=== PATIENT | female | born 1950 | race Caucasian/White ===

== ENCOUNTER 2019-04-22 11:25 | Emergency (ER) | payer MEDICARE, OTHER ==
[2019-04-22] MEDS ORDERED: ONDANSETRON HCL INJ/PF 4 MG/2 ML SDV IV ONE (11:38)
--- NOTE | 2019-04-22 11:43 | ER Document Report ---
ED Medical Screen (RME) - General Chief Complaint: Nausea/Vomiting Stated Complaint: NAUSEA,VOMITING,NEAR SYNCOPE Time Seen by Provider: 04/22/19 11:37 Mode of Arrival: Medic Information source: Patient Notes: 68-year-old female presented to ED for complaint of nausea vomiting and diarrhea since . She states she was in [place] at that time and was seen by . treated with some Zofran she was diagnosed with a viral illness at that time.. She states she is continued to be sick on Sunday she flew from [place] to [place]. She states she is continued to dizzy lightheaded and has had several large emesis since she came to [place]. She was treated with 500 cc of normal saline and 4 mg of IV Zofran in the EMS. We will give her another liter of fluids and 4 more milligrams of IV Zofran. She does have a history of COPD. She states she was diagnosed with a viral illness in [place]. She does have a history of colon cancer with a cancerous polyp removed but they did not actually do a resection. She states her mother does have a history of diverticulitis. Patient does have significant right lower quadrant tenderness. I have greeted and performed a rapid initial assessment of this patient. A comprehensive ED assessment and evaluation of the patient, analysis of test results and completion of medical decision making process will be conducted by an additional ED providers.
[2019-04-22] MEDS ORDERED: NORMAL SALINE 1000 ML 1,000 ML IV ONE (11:46)
[2019-04-22 11:48] LABS: ABSOLUTE LYMPHOCYTES (AUTO) 2.2 10^3/uL (0.5-4.7); ABSOLUTE MONOCYTES (AUTO) 0.5 10^3/uL (0.1-1.4); BASOPHILS % (AUTO) 0.3 % (0-2); EOSINOPHILS % (AUTO) 0.6 % (0-6); HEMATOCRIT 38.5 % (36.0-47.0); LYMPHOCYTES % (AUTO) 31.8 % (13-45); MEAN CORPUSCULAR HEMOGLOBIN 29.9 pg (27.0-33.4); MEAN CORPUSCULAR HGB CONC 33.7 g/dL (32.0-36.0); MEAN CORPUSCULAR VOLUME 89 fl (80-97); MONOCYTES % (AUTO) 7.8 % (3-13); PLATELET COUNT 239 10^3/uL (150-450); RED BLOOD COUNT 4.34 10^6/uL (3.72-5.28); RED CELL DISTRIBUTION WIDTH 14.8 % (11.5-14.0); SEGMENTED NEUTROPHILS % (AUTO) 59.5 % (42-78); TOTAL CELLS COUNTED % (AUTO) 100 %; WHITE BLOOD COUNT 6.8 10^3/uL (4.0-10.5)
[2019-04-22 12:13] LABS: ALBUMIN 3.8 g/dL (3.5-5.0); ALKALINE PHOSPHATASE 83 U/L (38-126); ANION GAP 10 (5-19); ASPARTATE AMINO TRANSFERASE 24 U/L (14-36); BILIRUBIN,DIRECT 0.1 mg/dL (0.0-0.4); BILIRUBIN,TOTAL 0.5 mg/dL (0.2-1.3); BLOOD UREA NITROGEN 12 mg/dL (7-20); CALCIUM 9.1 mg/dL (8.4-10.2); CARBON DIOXIDE 25 mmol/L (22-30); CHLORIDE 104 mmol/L (98-107); GLUCOSE 97 mg/dL (75-110); POTASSIUM 4.6 mmol/L (3.6-5.0); TOTAL PROTEIN 6.3 g/dL (6.3-8.2)
[2019-04-22 12:36] LABS: APPEARANCE,URINE CLEAR; BILIRUBIN,URINE NEGATIVE (NEGATIVE); COLOR,URINE YELLOW; GLUCOSE, URINE NEGATIVE (NEGATIVE); KETONES,URINE TRACE mg/dL (NEGATIVE); PROTEIN,URINE NEGATIVE (NEGATIVE); URINE SPECIFIC GRAVITY 1.005; UROBILINOGEN,URINE NEGATIVE mg/dL (<2.0)
--- NOTE | 2019-04-22 15:13 | RADIOLOGY REPORT (SQ) ---
EXAM DESCRIPTION: CT ABD/PELVIS WITH IV ORAL COMPLETED DATE/TIME: 04/22/2019 2:38 pm REASON FOR STUDY: Left lower quadrant pain COMPARISON: None. TECHNIQUE: CT scan of the abdomen and pelvis performed using helical scanning technique with dynamic intravenous contrast injection. Patient drank oral contrast. Images reviewed with lung, soft tissue , and bone windows. Reconstructed coronal and sagittal MPR images reviewed. Delayed images for evalua tion of the urinary system also acquired. All images stored on PACS. All CT scanners at this facility use dose modulation, iterative reconstruction, and/or weight based d osing when appropriate to reduce radiation dose to as low as reasonably achievable (ALARA). [facility]: Dose Right [facility]: CareDose [facility]: Dose Right [facility]: Teradose 4D [facility]: Podaddies CONTRAST TYPE AND DOSE: contrast/concentration: Isovue 350.00 mg/ml; Total Contrast Delivered: 70.0 ml; Total Saline Delivered: 57.0 ml RENAL FUNCTION: Creatinine 0.7 RADIATION DOSE: CT Rad equipment meets quality standard of care and radiation dose reduction techniq ues were employed. CTDIvol: 6.2 - 8.4 mGy. DLP: 707 mGy-cm.. LIMITATIONS: None. FINDINGS: LOWER CHEST: Obstructive lung disease at the bases. LIVER: Normal size. No masses. No dilated ducts. SPLEEN: Normal size. No focal lesions. PANCREAS: No masses. No significant calcifications. No adjacent inflammation or peripancreatic fluid collections. Pancreatic duct not dilated. GALLBLADDER: Surgically absent ADRENAL GLANDS: No significant masses or asymmetry. RIGHT KIDNEY AND URETER: No solid masses. No significant calcifications. No hydronephrosis or hyd roureter. LEFT KIDNEY AND URETER: No solid masses. No significant calcifications. No hydronephrosis or hydr oureter. AORTA AND VESSELS: No aneurysm. No dissection. Renal arteries, SMA, celiac without stenosis. RETROPERITONEUM: No retroperitoneal adenopathy, hemorrhage or masses. BOWEL AND PERITONEAL CAVITY: Patient drank oral contrast. No CT evidence of free intraperitoneal air or fluid or CT signs of bowel obstruction. No colonic diverticulosis/ diverticulitis. APPENDIX: Normal, best shown on axial images 61-65 PELVIS: No mass. No free fluid. Normal bladder. Post hysterectomy ABDOMINAL WALL: No masses. No hernias. BONES: No significant or acute findings. OTHER: No other significant finding. IMPRESSION: NO SIGNIFICANT OR ACUTE FINDING IN THE ABDOMEN OR PELVIS ON CT SCAN WITH IV CONTRAST. TECHNICAL DOCUMENTATION: JOB ID: [id number] Quality ID # [id number]: Final reports with documentation of one or more dose reduction techniques (e.g., Au tomated exposure control, adjustment of the mA and/or kV according to patient size, use of iterative reconstruction technique) 2010 [employer]- All Rights Reserved Reading location - IP/workstation name: [email or web address]
--- NOTE | 2019-04-22 15:27 | ER Document Report ---
ED General - General Chief Complaint: Nausea/Vomiting Stated Complaint: NAUSEA,VOMITING,NEAR SYNCOPE Time Seen by Provider: 04/22/19 11:37 Primary Care Provider: DONYA PÉREZ MD [Primary Care Provider] - Follow up as needed Mode of Arrival: Medic Information source: Patient TRAVEL OUTSIDE OF THE U[place]S. IN LAST 30 DAYS: No - HPI Notes: Patient presents with weakness and malaise. She states she is recently had a diarrheal illness. She states approximately a week ago she went to the emergency department and had received fluids because she was having severe diarrhea with low blood pressure. She states since that time she has just continued to have some dizziness and malaise. She denies any fever or rashes. No vomiting. No dysuria urgency or frequency. No significant abdominal pain. Her symptoms have been mild. They have gotten worse with standing and better with lying down. There is no known radiation of the symptoms. They have been intermittent. - Related Data Allergies/Adverse Reactions: morphine Allergy (Verified 04/22/19 12:44) adhesive tape Adverse Reaction (Verified 04/22/19 12:44) Past Medical History - General Information source: Patient - Social History Smoking Status: Current Every Day Smoker Frequency of alcohol use: None Drug Abuse: None Family History: Reviewed & Not Pertinent Patient has suicidal ideation: No Patient has homicidal ideation: No Pulmonary Medical History: Reports: Hx COPD Past Surgical History: Reports: Hx Bowel Surgery, Hx Cholecystectomy, Hx Hysterectomy, Hx Neurologic Surgery - Back, Hx Orthopedic Surgery - Rt shoulder Review of Systems - Review of Systems Constitutional: Malaise, Weakness. denies: Chills, Fever Cardiovascular: denies: Chest pain, Palpitations Respiratory: denies: Cough, Short of breath Gastrointestinal: Diarrhea. denies: Vomiting -: Yes All other systems reviewed and negative - Who was a Physical Exam - Vital signs Vitals: Temp Pulse Resp BP Pulse Ox 97.6 F 70 16 137/62 H 100 04/22/19 11:53 04/22/19 11:53 04/22/19 11:53 04/22/19 11:53 04/22/19 11:53 Interpretation: Normal - General General appearance: Appears well, Alert - HEENT Head: Normocephalic, Atraumatic Eyes: Normal Pupils: PERRL - Respiratory Respiratory status: No respiratory distress Chest status: Nontender Breath sounds: Normal Chest palpation: Normal - Cardiovascular Rhythm: Regular Heart sounds: Normal auscultation Murmur: No - Abdominal Inspection: Normal Distension: No distension Bowel sounds: Normal Tenderness: Nontender Organomegaly: No organomegaly - Back Back: Normal, Nontender - Extremities General upper extremity: Normal inspection, Nontender, Normal color, Normal ROM, Normal temperature General lower extremity: Normal inspection, Nontender, Normal color, Normal ROM, Normal temperature, Normal weight bearing. No: Juancho's sign - Neurological Neuro grossly intact: Yes Cognition: Normal Orientation: AAOx4 [place] Coma Scale Eye Opening: Spontaneous [place] Coma Scale Verbal: Oriented Shelia Coma Scale Motor: Obeys Commands [place] Coma Scale Total: 15 Speech: Normal Motor strength normal: LUE, RUE, LLE, RLE Sensory: Normal - Psychological Associated symptoms: Normal affect, Normal mood - Skin Skin Temperature: Warm Skin Moisture: Dry Skin Color: Normal Course - Re-evaluation Re-evalutation: 04/22/19 15:24 Patient presents with some dizziness and malaise. Patient's laboratory is unremarkable. Her exam is unremarkable. CT scan and vital signs are also unremarkable. I can find no obvious cause for patient's malaise and weakness except possibly the residual effects of what ever illness was causing her diarrhea last week. I think at this time patient is stable for discharge and to follow-up as an outpatient. Upon arrival here patient's dizziness was resolved and she has had no further dizziness. 04/22/19 15:25 - Vital Signs Vital signs: Temp Pulse Resp BP Pulse Ox 97.6 F 70 16 137/62 H 100 04/22/19 11:53 04/22/19 11:53 04/22/19 11:53 04/22/19 11:53 04/22/19 11:53 - Laboratory Result Diagrams: 04/22/19 11:10 04/22/19 11:10 Laboratory results interpreted by me: 04/22/19 04/22/19 11:10 12:20 RDW 14.8 H Urine Ketones TRACE H Urine Blood MODERATE H - Diagnostic Test Radiology reviewed: Image reviewed, Reports reviewed Discharge - Discharge Clinical Impression: Dizziness, Weakness Condition: Stable Disposition: HOME, SELF-CARE Instructions: Dizziness ([facility]) Additional Instructions: Please call your family doctor as soon as possible to arrange follow-up Referrals: DONYA PÉREZ MD [Primary Care Provider] - Follow up in 3-5 days
[2019-04-22 15:45] VITALS: BP 126/71
== END 2019-04-22 15:42 | disposition home or self-care (01) ==
LOC: ER 11:25
DX: R42 Dizziness and giddiness (principal); R53.1 Weakness; R11.2 Nausea with vomiting, unspecified; R55 Syncope and collapse; R19.7 Diarrhea, unspecified; Z88.6 Allergy status to analgesic agent; R53.81 Other malaise; Z90.710 Acquired absence of both cervix and uterus; Z90.49 Acquired absence of other specified parts of digestive tract
CPT/HCPCS: 99285; 96361; 96374; 36415; 83690; 85025; 80053; 81001; 74177; J2405; J7030

== ENCOUNTER → 2019-05-02 | Day surgery (SDC) | payer MEDICARE, OTHER ==
[~2019-05-02] MED LIST: BUPIVACAINE HCL 0.5 % INJ/PF 30 ML SDV ONE; METHYLPREDNISOLONE ACETATE INJ 80 MG/1 ML VIAL ONE
--- NOTE | 2019-05-02 15:01 | RADIOLOGY REPORT (SQ) ---
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 FLUOROSCOPY TIME: 0.2 minutes 1 images saved to PACS. LIMITATIONS: None. PROCEDURE: SITE OF INJECTION: Right hip LOCALIZING CONTRAST TYPE AND DOSE: 1 mL Omnipaque MEDICATION TYPE AND DOSE: 80 mg Depo-Medrol, 5 mL 0.5% bupivacaine. Using local anesthesia and sterile technique with fluoroscopic guidance, the needle was advanced into the joint. Iodinated contrast was injected to verify intraarticular placement. This was followed by therapeutic injection of the indicated medications. The needle was removed. There were no immediat e complications. Preprocedure pain level: 3/5. Postprocedure pain level: 0/5. IMPRESSION: THERAPEUTIC INJECTION OF THE RIGHT HIP JOINT ABOVE. COMMENT: Patient medication list reviewed: Yes- Quality ID# 130:Eligible professional attests to doc umenting in the medical record they obtained, updated, or reviewed the patient's current medications. . Quality ID 145: Final reports for procedures using fluoroscopy that document radiation exposure dereck mildred, or exposure time and number of fluorographic images (if radiation exposure indices are not avail able) TECHNICAL DOCUMENTATION: JOB ID: [id number] [employer]- All Rights Reserved Reading location - IP/workstation name: [email or web address]
--- NOTE | 2019-05-02 15:01 | RADIOLOGY REPORT (SQ) ---
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 FLUOROSCOPY TIME: 0.2 minutes 1 images saved to PACS. LIMITATIONS: None. PROCEDURE: SITE OF INJECTION: Right hip LOCALIZING CONTRAST TYPE AND DOSE: 1 mL Omnipaque MEDICATION TYPE AND DOSE: 80 mg Depo-Medrol, 5 mL 0.5% bupivacaine. Using local anesthesia and sterile technique with fluoroscopic guidance, the needle was advanced into the joint. Iodinated contrast was injected to verify intraarticular placement. This was followed by therapeutic injection of the indicated medications. The needle was removed. There were no immediat e complications. Preprocedure pain level: 3/5. Postprocedure pain level: 0/5. IMPRESSION: THERAPEUTIC INJECTION OF THE RIGHT HIP JOINT ABOVE. COMMENT: Patient medication list reviewed: Yes- Quality ID# 130:Eligible professional attests to doc umenting in the medical record they obtained, updated, or reviewed the patient's current medications. . Quality ID 145: Final reports for procedures using fluoroscopy that document radiation exposure dereck mildred, or exposure time and number of fluorographic images (if radiation exposure indices are not avail able) TECHNICAL DOCUMENTATION: JOB ID: [id number] [employer]- All Rights Reserved Reading location - IP/workstation name: [email or web address]
== END ==
LOC: RAD 12:52
PROVIDERS: ATTEND Orthopaedic Surgery
DX: M16.11 Unilateral primary osteoarthritis, right hip (principal)
CPT/HCPCS: 20610; 77002; J3490; J1040

== ENCOUNTER 2019-10-01 10:32 | Emergency (ER) | payer MEDICARE, OTHER ==
--- NOTE | 2019-10-01 10:44 | ER Document Report ---
ED Medical Screen (RME) - General Chief Complaint: Arm Pain Stated Complaint: LEFT ARM AND LEG PAIN, HEADACHE Time Seen by Provider: 10/01/19 10:40 Primary Care Provider: CHET NOLAN PA-C [Primary Care Provider] - Follow up as needed Information source: Patient Notes: Patient presents complaining of headache pain for the past 2 days with left upper and left lower extremity pain. Patient denies any weakness to the extremities. Patient is concerned that she may be having a stroke. Patient reports that history significant for COPD. I have greeted and performed a rapid initial assessment of this patient. A comprehensive ED assessment and evaluation of the patient, analysis of test results and completion of the medical decision making process will be conducted by additional ED providers. TRAVEL OUTSIDE OF THE [place].S. IN LAST 30 DAYS: No - Related Data Allergies/Adverse Reactions: morphine Allergy (Verified 04/22/19 12:44) adhesive tape Adverse Reaction (Verified 04/22/19 12:44) Past Medical History Pulmonary Medical History: Reports: Hx COPD Past Surgical History: Reports: Hx Bowel Surgery, Hx Cholecystectomy, Hx Hysterectomy, Hx Neurologic Surgery - Back, Hx Orthopedic Surgery - Rt shoulder Physical Exam - Vital signs Vitals: Temp Pulse Resp BP Pulse Ox 97.8 F 69 16 132/65 H 96 10/01/19 10:39 10/01/19 10:39 10/01/19 10:39 10/01/19 10:39 10/01/19 10:39 - Neurological Shelia Coma Scale Eye Opening: Spontaneous [place] Coma Scale Verbal: Oriented [place] Coma Scale Motor: Obeys Commands [place] Coma Scale Total: 15 Speech: Normal. No: Dysarthria Motor strength normal: HEBERTE, RUMikaela Course - Vital Signs Vital signs: Temp Pulse Resp BP Pulse Ox 97.8 F 69 16 132/65 H 96 10/01/19 10:39 10/01/19 10:39 10/01/19 10:39 10/01/19 10:39 10/01/19 10:39 Doctor's Discharge - Discharge Referrals: CHET NOLAN PA-C [Primary Care Provider] - Follow up as needed
--- NOTE | 2019-10-01 11:13 | RADIOLOGY REPORT (SQ) ---
EXAM DESCRIPTION: CT HEAD WITHOUT IMAGES COMPLETED DATE/TIME: 10/01/2019 10:54 am REASON FOR STUDY: MARROQUIN, arm pain COMPARISON: None. TECHNIQUE: Axial images acquired through the brain without intravenous contrast. Images reviewed wi th bone, brain and subdural windows. Images stored on PACS. All CT scanners at this facility use dose modulation, iterative reconstruction, and/or weight based d osing when appropriate to reduce radiation dose to as low as reasonably achievable (ALARA). [facility]: Dose Right [facility]: CareDose [facility]: Dose Right [facility]: Teradose 4D [facility]: [employer] RADIATION DOSE: CT Rad equipment meets quality standard of care and radiation dose reduction techniq ues were employed. CTDIvol: 53.2 mGy. DLP: 964 mGy-cm. mGy. LIMITATIONS: None. FINDINGS: VENTRICLES: Normal size and contour. CEREBRUM: No evidence of intracranial hemorrhage. There is a focal area of hypoattenuation involving the left munoz radiata and centrum semiovale compatible with infarct. Remaining avila-white differe ntiation is preserved. No evidence of significant mass effect or midline shift. CEREBELLUM: No masses. No hemorrhage. No alteration of density. No evidence for acute infarction. EXTRAAXIAL SPACES: No fluid collections. No masses. ORBITS AND GLOBE: No intra- or extraconal masses. Normal contour of globe without masses. CALVARIUM: No fracture. PARANASAL SINUSES: No fluid or mucosal thickening. SOFT TISSUES: No mass or hematoma. OTHER: No other significant finding. IMPRESSION: No evidence of intracranial hemorrhage. Focal area of hypoattenuation involving the lef t munoz radiata and centrum semiovale compatible with lacunar infarct, age indeterminate given lack of priors. Findings conveyed to Dr. Arellano at 1105 hours on 10/01/2019. EVIDENCE OF ACUTE STROKE: Age Indeterminate lacunar infarct LEFT MCA. COMMENT: Quality ID # 436: Final reports with documentation of one or more dose reduction techniques (e.g., Automated exposure control, adjustment of the mA and/or kV according to patient size, use of iterative reconstruction technique) TECHNICAL DOCUMENTATION: JOB ID: [id number] 2010 [employer]- All Rights Reserved Reading location - IP/workstation name: [email or web address]
--- NOTE | 2019-10-01 11:14 | RADIOLOGY REPORT (SQ) ---
EXAM DESCRIPTION: CHEST SINGLE VIEW IMAGES COMPLETED DATE/TIME: 10/01/2019 11:03 am REASON FOR STUDY: MARROQUIN, arm pain COMPARISON: None. EXAM PARAMETERS: NUMBER OF VIEWS: One view. TECHNIQUE: Single frontal radiographic view of the chest acquired. RADIATION DOSE: NA LIMITATIONS: None. FINDINGS: LUNGS AND PLEURA: No opacities, masses or pneumothorax. No pleural effusion. MEDIASTINUM AND HILAR STRUCTURES: No masses. Contour normal. HEART AND VASCULAR STRUCTURES: Heart normal in size. Aortic atherosclerosis. BONES: No acute findings. HARDWARE: Calcified bilateral breast prostheses. Right axillary surgical clips. OTHER: No other significant finding. IMPRESSION: NO ACUTE RADIOGRAPHIC FINDING IN THE CHEST. TECHNICAL DOCUMENTATION: JOB ID: [id number] 2010 [employer]- All Rights Reserved Reading location - IP/workstation name: [email or web address]
[2019-10-01 11:34] LABS: ABSOLUTE LYMPHOCYTES (AUTO) 2.3 10^3/uL (0.5-4.7); ABSOLUTE MONOCYTES (AUTO) 0.3 10^3/uL (0.1-1.4); ABSOLUTE NEUT (AUTO) 1.9 10^3/uL (1.7-8.2); HEMATOCRIT 38.9 % (36.0-47.0); HEMOGLOBIN 13.6 g/dL (12.0-15.5); LYMPHOCYTES % (AUTO) 49.1 % (13-45); MEAN CORPUSCULAR HEMOGLOBIN 31.1 pg (27.0-33.4); MEAN CORPUSCULAR HGB CONC 34.8 g/dL (32.0-36.0); MEAN CORPUSCULAR VOLUME 89 fl (80-97); MONOCYTES % (AUTO) 7.5 % (3-13); PLATELET COUNT 284 10^3/uL (150-450); RED BLOOD COUNT 4.35 10^6/uL (3.72-5.28); SEGMENTED NEUTROPHILS % (AUTO) 41.4 % (42-78); TOTAL CELLS COUNTED % (AUTO) 100 %; WHITE BLOOD COUNT 4.7 10^3/uL (4.0-10.5)
[2019-10-01 11:38] LABS: INTERNATIONAL RATION (INR) 0.93
[2019-10-01 11:39] LABS: PARTIAL THROMBOPLASTIN TIME 31.1 SEC (23.5-35.8)
[2019-10-01 11:41] LABS: PROTHROMBIN TIME 12.4 SEC (11.4-15.4)
[2019-10-01] MEDS ORDERED: LORAZEPAM 1 MG TABLET PO ONE (11:49)
[2019-10-01 11:56] LABS: ALBUMIN 4.2 g/dL (3.5-5.0); ALKALINE PHOSPHATASE 79 U/L (38-126); ANION GAP 6 (5-19); ASPARTATE AMINO TRANSFERASE 19 U/L (14-36); BILIRUBIN,TOTAL 0.5 mg/dL (0.2-1.3); BLOOD UREA NITROGEN 11 mg/dL (7-20); CALCIUM 9.2 mg/dL (8.4-10.2); CARBON DIOXIDE 27 mmol/L (22-30); CHLORIDE 104 mmol/L (98-107); CREATINE KINASE 42 U/L (30-135); GLUCOSE 96 mg/dL (75-110); POTASSIUM 4.4 mmol/L (3.6-5.0); TOTAL PROTEIN 6.7 g/dL (6.3-8.2)
[2019-10-01 12:07] LABS: CREATINE KINASE MB 0.46 ng/mL (<4.55)
[2019-10-01 12:12] LABS: TROPONIN I < 0.012 ng/mL
--- NOTE | 2019-10-01 12:13 | EKG REPORT ---
SEVERITY:- NORMAL ECG - SINUS RHYTHM : Confirmed by: Michael Valverde MD 01-Oct-2019 12:12:32
--- NOTE | 2019-10-01 14:13 | ER Document Report ---
ED Extremity Problem, Upper - General Chief Complaint: Arm Pain Stated Complaint: LEFT ARM AND LEG PAIN, HEADACHE Time Seen by Provider: 10/01/19 10:40 Primary Care Provider: CHET NOLAN PA-C [COMMUNITY BASED STAFF] - Follow up as needed Mode of Arrival: Ambulatory Information source: Patient TRAVEL OUTSIDE OF THE [place] IN LAST 30 DAYS: No - HPI Notes: Patient presents complaining of left arm and left leg pain. She states she is having shocklike sensations go down the left arm and some shooting pain in the left leg. She denies any weakness anywhere. No trouble swallowing or speaking. No confusion. She has no chest pain or shortness of breath. She states this started yesterday. She states it may be "a pulled muscle" because she is been doing a lot of yard work. The pain in the arm is intermittent. Nothing makes it better or worse. It appears randomly. It is a shocklike sensation. It radiates from the top of the arm to the bottom. - Related Data Allergies/Adverse Reactions: morphine Allergy (Verified 10/01/19 10:52) adhesive tape Adverse Reaction (Verified 10/01/19 10:52) Home Medications: amitiza, vit d, vit c Past Medical History - General Information source: Patient - Social History Smoking Status: Current Every Day Smoker Chew tobacco use (# tins/day): No Frequency of alcohol use: None Drug Abuse: None Family History: Reviewed & Not Pertinent Patient has homicidal ideation: No Pulmonary Medical History: Reports: Hx COPD Past Surgical History: Reports: Hx Bowel Surgery, Hx Cholecystectomy, Hx Hysterectomy, Hx Neurologic Surgery - Back, Hx Orthopedic Surgery - Rt shoulder Review of Systems - Review of Systems Constitutional: denies: Chills, Fever Cardiovascular: denies: Chest pain, Palpitations Respiratory: denies: Cough, Short of breath -: Yes All other systems reviewed and negative Physical Exam - Vital signs Vitals: Temp Pulse Resp BP Pulse Ox 97.8 F 69 16 132/65 H 96 10/01/19 10:39 10/01/19 10:39 10/01/19 10:39 10/01/19 10:39 10/01/19 10:39 Interpretation: Normal - General General appearance: Appears well, Alert - HEENT Head: Normocephalic, Atraumatic Eyes: Normal Pupils: PERRL - Respiratory Respiratory status: No respiratory distress Chest status: Nontender Breath sounds: Normal Chest palpation: Normal - Cardiovascular Rhythm: Regular Heart sounds: Normal auscultation Murmur: No - Abdominal Inspection: Normal Distension: No distension Bowel sounds: Normal Tenderness: Nontender Organomegaly: No organomegaly - Back Back: Normal, Nontender - Extremities General upper extremity: Normal inspection, Nontender, Normal color, Normal ROM, Normal temperature General lower extremity: Normal inspection, Nontender, Normal color, Normal ROM, Normal temperature, Normal weight bearing. 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 No: Pronator drift Sensory: Normal - Psychological Associated symptoms: Normal affect, Normal mood - Skin Skin Temperature: Warm Skin Moisture: Dry Skin Color: Normal Course - Re-evaluation Re-evalutation: 10/01/19 14:[address] shows a lacunar infarct. Age at this time is indeterminate so an MRI has been ordered and is currently pending. 10/01/19 14:35 Patient at this time is resting comfortably in the bed without significant symptoms. MRI shows no acute process I did discuss with the patient that she has had a lacunar infarct in the past and will need an outpatient work-up. - Vital Signs Vital signs: Temp Pulse Resp BP Pulse Ox 97.8 F 66 19 121/50 L 96 10/01/19 10:40 10/01/19 12:00 10/01/19 14:13 10/01/19 14:13 10/01/19 14:13 - Laboratory Result Diagrams: 10/01/19 11:20 10/01/19 11:20 Laboratory results interpreted by me: 10/01/19 10/01/19 11:20 11:20 RDW 15.0 H Lymph % (Auto) 49.1 H Seg Neutrophils % 41.4 L Sodium 136.7 L - Diagnostic Test Radiology reviewed: Image reviewed, Reports reviewed - EKG Interpretation by Me EKG shows normal: Sinus rhythm Rate: Normal - 65 Rhythm: NSR Parnell/QRS: No: Right axis deviation, Left axis deviation Discharge - Discharge Clinical Impression: Paresthesia Condition: Stable Disposition: HOME, SELF-CARE Instructions: Numbness or Paresthesia ([facility]), Arm Pain, Nonspecific ([facility]) Additional Instructions: Please call your primary care doctor soon as possible to arrange follow-up. Discussed with your primary that you have a lacunar infarct that is old on your CT scan. Discussed possibly getting carotid ultrasounds. Referrals: CHET NOLAN PA-C [COMMUNITY BASED STAFF] - Follow up as needed
--- NOTE | 2019-10-01 14:18 | RADIOLOGY REPORT (SQ) ---
EXAM DESCRIPTION: MRI HEAD WITHOUT IMAGES COMPLETED DATE/TIME: 10/01/2019 2:02 pm REASON FOR STUDY: left arm/leg paresthesia/abnormal CT COMPARISON: None. TECHNIQUE: Multiplanar imaging includes non-contrasted T1, T2, FLAIR, and diffusion with ADC map seq uences. Images stored on PACS. LIMITATIONS: None. FINDINGS: ANATOMY: No anomalies. Normal vascular flow voids. Pituitary fossa normal. CSF SPACES: Normal in size and contour. No hemorrhage. CEREBRUM: Sulci and gyri normal in size and contour. Increased FLAIR signal corresponding to the pre viously seen area of hypoattenuation within the right centrum semiovale and munoz radiata without co rresponding abnormal diffusion signal compatible with prior lacunar infarct. There is mild associate d encephalomalacia. Few additional scattered areas of subcortical and periventricular FLAIR signal h yperintensity compatible likely sequelae of microangiopathic disease. No mass, hemorrhage or extra-a xial fluid collection. POSTERIOR FOSSA: No signal alteration. No hemorrhage. No edema, masses or mass effect. Internal jim tory canals, cerebello-pontine angles, mastoids normal. DIFFUSION IMAGING: Negative for acute or sub-acute infarction. ORBITS: No masses. Globes normal. PARANASAL SINUSES: No fluid levels. Mucosa normal. OTHER: No other significant finding. IMPRESSION: 1. No evidence of acute intracranial process. Mild nonspecific white matter changes, l ikely sequelae of microangiopathic disease. 2. Chronic left frontal periventricular lacunar infarct corresponding to same-day CT findings. No d iffusion signal abnormality to suggest acute component. EVIDENCE OF ACUTE STROKE: NO. TECHNICAL DOCUMENTATION: JOB ID: [id number] [employer]- All Rights Reserved Reading location - IP/workstation name: [email or web address]
[2019-10-01 14:23] VITALS: BP 121/50
== END 2019-10-01 15:17 | disposition home or self-care (01) ==
LOC: ER 10:32
DX: R20.2 Paresthesia of skin (principal); R51 Headache; M79.605 Pain in left leg; M79.602 Pain in left arm; F17.200 Nicotine dependence, unspecified, uncomplicated; Z90.49 Acquired absence of other specified parts of digestive tract; Z90.710 Acquired absence of both cervix and uterus; Z88.6 Allergy status to analgesic agent
CPT/HCPCS: 93005; 99284; 36415; 82553; 82962; 82550; 85025; 85610; 85730; 80053; 84484; 70551; 71045; 70450; 93010; A9270

== ENCOUNTER 2020-04-27 08:59 | Day surgery (SDC) | payer MEDICARE, OTHER ==
[~2020-04-27 08:59] MED LIST changes: +ACETAMINOPHEN 1,000 MG/100 ML RTUPB IV PRN; -BUPIVACAINE HCL 0.5 % INJ/PF 30 ML SDV ONE; +CEFOXITIN SODIUM 2 GM in DEXTROSE 5%-WATER 100 ML IV PRN; +DEXAMETHASONE SOD PHOSPHATE INJ 4 MG/1 ML VIAL ONE; +IBUPROFEN 800 MG in NORMAL SALINE 250 ML IV PRN; +LIDOCAINE 2% INJ-PF (20 MG/ML) 2 ML AMPUL ONE; -METHYLPREDNISOLONE ACETATE INJ 80 MG/1 ML VIAL ONE; +ONDANSETRON HCL INJ/PF 4 MG/2 ML SDV ONE; +PHENYLEPHRINE HCL INJ/PF 10 MG/1 ML SDV ONE; +SUCCINYLCHOLINE CHLORIDE INJ 200 MG/10 ML VIAL ONE
[2020-04-27] MEDS ORDERED: ACETAMINOPHEN 1,000 MG/100 ML RTUPB IV ONE (10:30)
[2020-04-27] MEDS ORDERED: BUPIVACAINE INJ/PF LIPOSOME/PF 266 MG/20 ML SDV ONE (12:06)
[2020-04-27] MEDS ORDERED: LIDOCAINE 2% JELLY 30 ML TUBE ONE (12:06)
[2020-04-27] MEDS ORDERED: BACITRACIN ZINC OINTMENT 15 GM ONE (12:06)
[2020-04-27] MEDS ORDERED: PROPOFOL INJ 200 MG/20 ML VIAL IV ONE (12:10)
[2020-04-27] MEDS ORDERED: FENTANYL CITRATE INJ/PF 100 MCG/2 ML AMPUL ONE ×2 (12:10→14:06)
[2020-04-27] MEDS ORDERED: EPHEDRINE SULFATE INJ 50 MG/1 ML AMPULE ONE (12:44)
[2020-04-27] MEDS ORDERED: FENTANYL CITRATE INJ/PF 100 MCG/2 ML AMPUL IV PRN (13:58)
[2020-04-27] MEDS ORDERED: PROMETHAZINE HCL INJ 25 MG/1 ML VIAL IV PRN (13:58)
[2020-04-27] MEDS ORDERED: DIPHENHYDRAMINE HCL 50 MG/ML VIAL IV PRN (13:58)
[2020-04-27] MEDS ORDERED: MEPERIDINE HCL/PF INJ 25 MG/1 ML DISP.SYRIN IV PRN (13:58)
--- NOTE | 2020-04-27 14:01 | Discharge Summary ---
Discharge Summary (SDC) - Discharge Final Diagnosis: Internal and external hemorrhoids Date of Surgery: 04/27/20 Discharge Date: 04/27/20 Condition: Stable Treatment or Instructions: Discharge home. Diet as tolerated. Activity: Nonstrenuous. Warm sits baths in soapy water twice daily and after bowel movements. Okay to shower. Henderson 10/325 mg p.o. every 6 hours as needed for pain. 800 mg ibuprofen p.o. 3 times daily with meals. 5% lidocaine ointment to rectum 3 times daily. Neosporin ointment ([id number]) to rectum 3 times daily. Follow-up at [facility] in 7 to 10 days. Prescriptions: Ibuprofen [Ibu] 800 mg PO TID #42 tablet Hydrocodone/Acetaminophen [Henderson 10-325 mg Tablet] 1 tab PO Q6HP PRN #28 tablet PRN Reason: For Pain Referrals: CHET NOLAN PA-C [Primary Care Provider] - Discharge Diet: As Tolerated Respiratory Treatments at Home: Deep Breathing/Coughing, Incentive Spirometer Discharge Activity: Balance Activity w/Rest, No Lifting Over 10 Pounds, No Lifting/Push/Pulling Home Care Assistance: None Needed Report the Following to Your Physician Immediately: Shortness of Breath, Nausea, Vomiting, Fever over 101 Degrees, Unusual Bleeding, Redness, Swelling
[2020-04-27] MEDS ORDERED: FENTANYL CITRATE INJ/PF 100 MCG/2 ML AMPUL IV ONE (14:02)
--- NOTE | 2020-04-27 14:07 | Operative Report ---
Nonrecallable Operative Report DATE OF SURGERY: 04/27/20 PREOPERATIVE DIAGNOSIS: Internal and external hemorrhoids, symptomatic POSTOPERATIVE DIAGNOSIS: Same as above OPERATION: 1. 2 column internal and external hemorrhoidectomy (right anterior and left lateral positions). 2. Rubber band ligation of right posterior internal hemorrhoids. SURGEON: VIOLET CHAWLA ANESTHESIA: GA TISSUE REMOVED OR ALTERED: Left lateral and right anterior hemorrhoids COMPLICATIONS: None apparent ESTIMATED BLOOD LOSS: 20 cc PROCEDURE: Drains/implants: None. Procedure in detail: After informed consent was obtained, the patient was brought to the operating room and laid in the prone jackknife position. The area of the anus and rectum were prepped and draped in a normal sterile fashion. An anal block was created with 20 cc of Exparel. The anus was then inspected. Bogdan-Angie retractor was inserted into the anus and rectum. The right anterior and left lateral columns were the largest of the 3. These were excised using Bovie electrocautery. The hemorrhoid was removed from the patient. The resultant defect was closed using 3-0 chromic suture in simple running fashion. Great care was taken to reapproximate mucosa to mucosa, anoderm to anoderm, and skin to skin. This was done for both the right anterior and left lateral columns. There were enlarged internal hemorrhoids in the right posterior column, after closure was completed. The right posterior hemorrhoids were ligated using the rubber band ligation device x2. Once this was completed, a dressing was placed, and the procedure was concluded. All sponge, instrument, and needle counts were correct x2. Condition: Stable. Windy Davis PA-C was scrubbed and present the entirety of the procedure. She assisted with all portions of the procedure including resection of the hemorrhoids, closure of the defect, creation of the anal block, placement of the dressing.
[2020-04-27] MEDS ORDERED: HYDROCODONE/ACETAMINOPHEN 10-325 MG TABLET PO PRN (14:10)
[2020-04-27 16:25] VITALS: BP 130/54
== END 2020-04-27 16:08 | disposition home or self-care (01) ==
LOC: OROUT 08:59
PROVIDERS: ATTEND Surgery
DX: K64.8 Other hemorrhoids (principal); K64.4 Residual hemorrhoidal skin tags; K59.09 Other constipation; Z20.828 Contact with and (suspected) exposure to other viral communicable diseases; J44.9 Chronic obstructive pulmonary disease, unspecified; F17.210 Nicotine dependence, cigarettes, uncomplicated; Z86.010 Personal history of colon polyps; Z80.0 Family history of malignant neoplasm of digestive organs; Z86.73 Personal history of transient ischemic attack (TIA), and cerebral infarction without residual deficits
CPT/HCPCS: 88304 ×2; 46260; U0003; A9270; J1100; J3490 ×2; J3010; J2370; J0330; J2405; J7060; J7050; J2704; J0131; C9290; J1741; J0694; C9803; 87635; 902